=== PATIENT | male | born 1985 | race Hispanic/Latino ===

== ENCOUNTER 2018-11-28 12:47 | Emergency (ER) | payer SELFPAY ==
[~2018-11-28 12:47] MED LIST: Sodium Chloride Irrig Solution 250 ML BOT ONE
[2018-11-28] MEDS ORDERED: Adacel (T-DAP) 0.5 ML SYRINGE ONE (13:16)
[2018-11-28] MEDS ORDERED: Morphine 4 MG/ML VIAL ONE (13:16)
[2018-11-28] MEDS ORDERED: Sodium Chloride 0.9% 100 ML ONE (13:34)
[2018-11-28] MEDS ORDERED: cefTRIAXone\\ROCEPHIN 1 GM VIAL ONE (13:34)
--- NOTE | 2018-11-28 15:06 | RAD ---
LEFT INDEX FINGER 3 VIEWS: Date: 11/28/18 HISTORY: Left finger injury. FINDINGS/IMPRESSION: Prominent soft tissue laceration to the volar aspect of the index finger. A 0.2 cm ossific fragment i s minimally displaced from the lateral base of the distal phalanx. On the lateral view, there are add itional tiny irregular ossific fragments likely related to an osseous laceration. No metallic fragments are apparent. POS: [facility]
== END 2018-11-28 13:10 | disposition short-term general hospital (02) ==
LOC: MADERS 12:47
DX: S62.631B Displaced fracture of distal phalanx of left index finger, initial encounter for open fracture (principal); S61.213A Laceration without foreign body of left middle finger without damage to nail, initial encounter; S61.215A Laceration without foreign body of left ring finger without damage to nail, initial encounter; W26.8XXA Contact with other sharp object(s), not elsewhere classified, initial encounter
CPT/HCPCS: 90471; 90715; 96365; 96375; J0696; J2270; J7050